=== PATIENT | female | born 1980 | race Caucasian/White ===

== ENCOUNTER 2019-12-09 00:29 | Emergency (ER) | payer MEDICARE, MEDICAID, SELFPAY ==
[2019-12-09 00:31] VITALS: BP 140/99; PULSE 89; RESP 18; TEMP 36.5; O2SAT 99; BMI 33.7
[2019-12-09 00:34] VITALS: O2SAT 100
--- NOTE | 2019-12-09 01:12 | ED.VIS.GEN ---
History of Present Illness Chief Complaint: Shortness of Breath Narrative: Patient states that she has been having respiratory issues for months. Recently the patient was seen at an urgent care on the and diagnosed with bronchitis. She was started on doxycycline steroids and inhaler. She states she was seen again and was told that it was probably turning into pneumonia but they could not do anything different. She states that night her symptoms are worse she notes wheezing and crackles when she breathes. She notes coughing fits. She notes 100 102 fevers but only at night. She states she does not take it during the day because she is not feeling that bad. She is currently staying with her daughter not from the area. PCP therefore is out of town. Past Medical History - Allergies and Home Meds Allergies/Adverse Reactions: Allergies No Known Allergies Allergy (Verified 12/09/19 00:33) Primary Care Physician: [facility] Doctor,Out of [NON-STAFF] - Smoking Status: Never smoker Review of Systems General: Reports: Fever, Malaise. Denies: Chills, Sweats Eyes: Denies: Visual changes - bilaterally, Diplopia ENT: Denies: Rhinorrhea, Sore throat Cardiovascular: Denies: Chest pain, Palpitations Respiratory: Reports: Dyspnea, Cough, Sputum. Denies: Dyspnea on exertion Gastrointestinal: Denies: Abdominal pain, Nausea, Vomiting, Diarrhea, Melena, Hematochezia Genitourinary: Denies: Dysuria, Hematuria, Frequency Musculoskeletal: Denies: Back pain, Extremity Pain Skin: Denies: Rash, Wounds Neurological: Denies: Headache, Weakness, Numbness Physical Exam Vital Signs/Narrative: Vital Signs Temp Pulse Resp BP Pulse Ox 12/09/19 00:31 97.7 F L 89 18 140/99 H 99 Inital Vital Signs reviewed: Yes General: Well nourished, Well developed, No Acute Distress Head: Normocephalic, Atraumatic Eyes: Perrl, EOMI ENT: Moist mucous membranes, No rhinorrhea Neck: Supple, Nontender Cardiovascular: Regular rate, Regular rhythm, No murmurs Respiratory: No distress, CTA bilaterally, Chest nontender Abdomen: Soft, Nontender, Nondistended, Normal bowel sounds Back: Nontender, Normal Inspection Extremities: Nontender, No edema Skin: Normal color, No rash Neurological: Alert, Oriented x3, Cranial nerves II-XII grossly intact, Normal Strength, Normal Sensation Psychological: Normal affect, Normal Mood Diagnostic/Tx/Re-eval - Medical Decision Making Chest x-ray is normal. Patient has had these symptoms for several months. She is on Prilosec. She has not gotten better with doxycycline steroids and inhaler. Her symptoms are worse at night. This could be reflux disease. I am going to start her on Pepcid twice a day and have her stop the Prilosec. I am also going to give her Carafate so she has additional medicine there at nighttime. I am not going to extend her prednisone as it has not been helping. I do not think she needs any more antibiotics. I will refer her to pulmonology and would encourage her to establish local primary care if she is going to be here. ED Disposition - Plan for ED Patient: Disposition: Home or Assisted Living Diagnosis: Cough Instructions: COUGH, Chronic, Uncertain Cause, (Adult) Prescriptions: Sucralfate [Carafate] 1 gm PO 4X/DAY #56 tab Prescription Printed Famotidine [Pepcid] 20 mg PO BID #28 tab Prescription Printed Referrals: Vaibhav Covarrubias DO [STAFF PHYSICIAN] - Additional Instructions: Discontinue your Prilosec and begin these prescriptions.
--- NOTE | 2019-12-09 01:35 | RAD_ITS ---
STUDY: X-RAY CHEST REASON FOR EXAM: Female, 39 years old. COUGH, CONGESTION TECHNIQUE: PA and lateral views of the chest. COMPARISON: None. FINDINGS: The lungs are clear and expanded. There is no demonstrated pleural abnormality. Normal size heart. Normal mediastinum and shola. Normal visualized pulmonary arteries. Normal visualized aortic arch and descending thoracic aorta. Normal visualized thoracic spine. Normal visualized ribs, clavicles, and shoulders. There is no demonstrated abnormality of the visualized soft tissue structures of the upper abdomen. RAD/Chest PA and Lateral IMPRESSION: Normal x-ray examination of the chest. Electronically Signed: Yolanda Colmenares MD at 1:58 EST , Service support ,
[2019-12-09 02:30] VITALS: BP 126/97; PULSE 76; RESP 16; O2SAT 98
[2019-12-09 02:53] VITALS: BP 122/100; PULSE 75; RESP 16; O2SAT 99
== END 2019-12-09 02:54 | disposition home or self-care (01) ==
PROVIDERS: Emergency Provider Emergency Medicine
DX: R05 Cough (principal); R06.2 Wheezing; R50.9 Fever, unspecified
CPT/HCPCS: 71046; 99282

== ENCOUNTER → 2023-04-13 | Outpatient (CLI) | payer MEDICARE, MEDICAID, SELFPAY ==
--- NOTE | 2023-04-13 14:54 | CT_ITS ---
EXAM: CT MAXILLOFACIAL SINUSES WITHOUT INTRAVENOUS CONTRAST CLINICAL INDICATION: SINUSITIS TECHNIQUE: Helically acquired images were obtained of the maxillofacial sinuses without intravenous contrast. This CT exam was performed using one or more of the following dose reduction techniques: automated exposure control, adjustment of the mA and/or kV according to patient size, and/or use of iterative reconstruction technique. RADIATION DOSE: CTDIvol = 33.06 mGy, DLP = 813.19 mGy-cmContrast: COMPARISON: No relevant prior studies available. FINDINGS: MAXILLARY SINUSES: Mild mucosal thickening and mild fluid in the left maxillary sinus. There is mucosal thickening narrowing the left maxillary sinus infundibulum. No significant distortion from accessory air cells. Ostiomeatal complexes are normally formed. SPHENOID SINUSES: Clear. FRONTAL SINUSES: Clear. ETHMOID AIR CELLS: Clear. NASAL CAVITY/SEPTUM: Nasal septum is midline. Nasal turbinates are unremarkable. BONES/JOINTS: Mild left nasal septal deviation and spur. Small left middle turbinate. ORBITS: Unremarkable. DENTAL: Unremarkable as visualized. No periodontal osseous erosion. CT/Sinus/Facial Bone IMPRESSION: Mild acute on chronic sinusitis in the left maxillary sinus. Mucosal thickening narrowing the left maxillary sinus infundibulum. Mild left nasal septal deviation and spur. Electronically Signed: Nerissa Nash MD at 8:55 EDT ,
== END | disposition home or self-care (01) ==
LOC: CT 14:53
PROVIDERS: Referring Provider Otolaryngology Otolaryngology/Facial Plastic Surgery; Visit Provider Otolaryngology Otolaryngology/Facial Plastic Surgery
DX: J32.9 Chronic sinusitis, unspecified (principal)
CPT/HCPCS: 70486

== ENCOUNTER → 2023-08-16 | Outpatient (CLI) | payer MEDICARE, MEDICAID, SELFPAY ==
--- NOTE | 2023-08-15 | ETH_PTH ---
PATIENT: LELO CHAND LOC: [facility]#:[id number] AGE/SX: 43/F ROOM: RE08/16/[address]: Dr. Sumanth Martin MD : 1980 BED: DIS: 08/16/2023 SPEC #: [id number] RECD: 08/16/23 10:57 STATUS: JIM REKeren #: [id number] DIONY: 08/15/23 00:[address]: Sumanth Martin DEPT: SURGICAL PATHOLOGY RECD BY: Fernando Guthrie ENTERED: 08/16/23 10:57 SP TYPE: ETH TISS OTHR DR: SOILA Tissues: A - Ethmoid sinus, NOS B - Ethmoid sinus, NOS C - Nasal septum, NOS Procedures: Decalcification bone/plaque Surgery Specimen Level III HEADER OPERATION: Septoplasty, maxillary antrostomy, ethmoidectomy PRE-OP DIAGNOSIS: Deviated nasal septum, chronic maxillary sinusitis TISSUE SUBMITTED: A - Right sinus contents, B - Left sinus contents, C - Septum MICROSCOPIC DIAGNOSIS A. Right sinus contents, curettings: Chronic sinusitis. Fragments of bone with no pathologic change. B. Left sinus contents, curettings: Chronic sinusitis. Fragments of bone with no pathologic change. C. Nasal septum, septoplasty: Fragments of hyaline cartilage and bone with focal reactive and reparative change (clinically deviated septum). AM:gregoria 08/19/2023 MICROSCOPIC DESCRIPTION Slides are reviewed. GROSS DESCRIPTION A - Received in fixative is one container labeled with the patient's name and designated right sinus contents. The specimen consists of multiple irregular and gritty fragments of huitron tissue that in aggregate measure 1.7 x 1.2 x 0.2 cm. The specimen is totally submitted in one cassette after decalcification. B - Received in fixative is one container labeled with the patient's name and designated left sinus contents. The specimen consists of multiple irregular and gritty fragments of huitron tissue that in aggregate measure 2.2 x 1.6 x 0.2 cm. The specimen is totally submitted in one cassette after decalcification. C - Received in fixative is one container labeled with the patient's name and designated septum. The specimen consists of multiple irregular fragments of light huitron bone and cartilage that in aggregate measure 3.0 x 2.5 x 0.2 cm. The specimen is totally submitted in one cassette after decalcification. / AM:gregoria 08/16/2023 TC:3 CPT: 16593 x3, 25232 x3
== END | disposition home or self-care (01) ==
LOC: LABSPEC 10:30
PROVIDERS: Referring Provider Otolaryngology; Visit Provider Otolaryngology
DX: J34.2 Deviated nasal septum (principal); J32.0 Chronic maxillary sinusitis
CPT/HCPCS: 88304; 88305; 88311